=== PATIENT | male | born 2000 | race Caucasian/White ===

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

== ENCOUNTER → 2021-02-07 14:02 | Outpatient (CLI) | payer BC | END | disposition home or self-care (01) | LOC: D.MRI 14:00 | PROVIDERS: ATTEND Nurse Practitioner Family | DX: M22.2X1 Patellofemoral disorders, right knee (principal) ==